=== PATIENT | male | born 1970 | race Caucasian/White ===

== ENCOUNTER 2020-04-23 08:49 | Outpatient (AMBR) | payer MEDICARE, MEDICAID, SELFPAY ==
--- NOTE | 2020-03-31 13:16 | PTNOTE_ITS ---
PT OP Initial Eval Patient Information Visit Reasons: post op right shoulder Medical Diagnosis: S46.091D Treatment Dx #1: Right Shoulder Mobility Deficits Treatment Dx #2: Right Shoulder Weakness Start of Care: 03/31/20 Date of Onset: 01/30/20 Initial Assessment Subjective Pt is a 49 y/o male s/p right shoulder labral repair and bicep tenodesis 01/30/20. Pt still has shoulder pain (5/10) with certain activities. Pt has limitation with overhead motions, auto mechanic supervisor work, self care, chores, lifting, gripping activities, and recreational activities. Objective Right Shoulder AROM Flexion: 150 deg Abduction: 155 deg External Rotation: 90 deg Internal Rotation: 50 deg Right Shoulder MMTs: grossly 3-/5 Right Scapula MMTs: grossly 3-/5 HBB: Thumb at L4 Assessment Pt demonstrate right shoulder mobility and strength deficits s/p shoulder surgery leading to decline function. 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
--- NOTE | 2020-04-09 12:57 | PT.ODAYNRPT ---
PT Outpatient Daily Note Date of Service: 04/09/20 OP Daily Note Visit Reasons: post op right shoulder Outpatient Physical Therapy Treatment Date: 04/09/20 Subjective: Pt's shoulder feels good. Pt notice it still pops and lock at times. Objective: Please see flow chart for list of ther ex performed Assessment: tolerate exercises with minimal pain Plan: Continue with PT Length of Time (minutes) of Treatment: 30 Minutes Office Procedures PT Procedures PT Date of Service: 03/31/20 OP PT Eval Mod Complex 30 minutes: Yes PT Procedures PT Date of Service: 04/09/20 Therapeutic Exercise 30 minutes: Yes
--- NOTE | 2020-04-14 10:48 | PT.ODAYNRPT ---
PT Outpatient Daily Note Date of Service: 04/14/20 OP Daily Note Visit Reasons: post op right shoulder Outpatient Physical Therapy Treatment Date: 04/14/20 Subjective: Pt's shoulder is a little sore today. Pt notice increase soreness after last treatment session. Pt is taking it easy at home. Objective: Please see flow chart for list of ther ex performed Assessment: tolerate exercises with minimal pain; added body blade and performed well Plan: Continue with PT Length of Time (minutes) of Treatment: 30 Minutes Office Procedures PT Procedures PT Date of Service: 03/31/20 OP PT Eval Mod Complex 30 minutes: Yes PT Procedures PT Date of Service: 04/09/20 Therapeutic Exercise 30 minutes: Yes PT Procedures PT Date of Service: 04/14/20 Therapeutic Exercise 30 minutes: Yes
--- NOTE | 2020-04-16 12:46 | PT.ODAYNRPT ---
PT Outpatient Daily Note Date of Service: 04/16/20 OP Daily Note Visit Reasons: post op right shoulder Outpatient Physical Therapy Treatment Date: 04/16/20 Subjective: Pt's shoulder feels good but sore. Pt notice his ROM is improving and getting easier to reach overhead Objective: Please see flow chart for list of ther ex performed Assessment: tolerate exercises with minimal pain; still exhibit slight ant shoulder pain towards end range of flexion and abduction ROM Plan: Continue with PT Length of Time (minutes) of Treatment: 30 Minutes Office Procedures PT Procedures PT Date of Service: 03/31/20 OP PT Eval Mod Complex 30 minutes: Yes PT Procedures PT Date of Service: 04/09/20 Therapeutic Exercise 30 minutes: Yes PT Procedures PT Date of Service: 04/14/20 Therapeutic Exercise 30 minutes: Yes PT Procedures PT Date of Service: 04/16/20 Therapeutic Exercise 30 minutes: Yes
--- NOTE | 2020-04-21 11:09 | PT.ODAYNRPT ---
PT Outpatient Daily Note Date of Service: 04/21/20 OP Daily Note Visit Reasons: post op right shoulder Outpatient Physical Therapy Treatment Date: 04/21/20 Subjective: Pt mention that his shoulder is better. Pt stated that it still catches at a certain range of motion but once he clears it the shoulder will move more freely Objective: Please see flow chart for list of ther ex performed Assessment: tolerate exercises with minimal pain Plan: Continue with PT Length of Time (minutes) of Treatment: 30 Minutes Office Procedures PT Procedures PT Date of Service: 03/31/20 OP PT Eval Mod Complex 30 minutes: Yes PT Procedures PT Date of Service: 04/09/20 Therapeutic Exercise 30 minutes: Yes PT Procedures PT Date of Service: 04/14/20 Therapeutic Exercise 30 minutes: Yes PT Procedures PT Date of Service: 04/16/20 Therapeutic Exercise 30 minutes: Yes PT Procedures PT Date of Service: 04/21/20 Therapeutic Exercise 30 minutes: Yes
--- NOTE | 2020-04-23 16:05 | PT.ODAYNRPT ---
PT Outpatient Daily Note Date of Service: 04/23/20 OP Daily Note Visit Reasons: post op right shoulder Outpatient Physical Therapy Treatment Date: 04/23/20 Subjective: Pt's shoulder is getting better. Pt does not have any pain right now. Objective: Please see flow chart for list of ther ex performed Assessment: tolerate exercises with minimal pain Plan: Continue with PT Length of Time (minutes) of Treatment: 30 Minutes Office Procedures PT Procedures PT Date of Service: 03/31/20 OP PT Eval Mod Complex 30 minutes: Yes PT Procedures PT Date of Service: 04/09/20 Therapeutic Exercise 30 minutes: Yes PT Procedures PT Date of Service: 04/14/20 Therapeutic Exercise 30 minutes: Yes PT Procedures PT Date of Service: 04/16/20 Therapeutic Exercise 30 minutes: Yes PT Procedures PT Date of Service: 04/23/20 Therapeutic Exercise 30 minutes: Yes PT Procedures PT Date of Service: 04/21/20 Therapeutic Exercise 30 minutes: Yes
== END 2020-04-26 23:59 | disposition home or self-care (01) ==
PROVIDERS: PCP Nurse Practitioner; Referring Provider Nurse Practitioner; Visit Provider Orthopaedic Surgery
DX: S46.091D Other injury of muscle(s) and tendon(s) of the rotator cuff of right shoulder, subsequent encounter (principal); M25.511 Pain in right shoulder; R53.1 Weakness; X58.XXXD Exposure to other specified factors, subsequent encounter
CPT/HCPCS: 97110; 97162

== ENCOUNTER 2020-04-28 09:28 | Outpatient (AMBR) | payer MEDICARE, MEDICAID, SELFPAY ==
--- NOTE | 2020-04-28 13:58 | PT.ODAYNRPT ---
PT Outpatient Daily Note Date of Service: 04/28/20 OP Daily Note Visit Reasons: right shoulder post op Outpatient Physical Therapy Treatment Date: 04/28/20 Subjective: Pt still can't reach behind his back. Pt has can perform most activities up to shoulder height and beyond it Objective: Please see flow chart for list of ther ex performed Assessment: tolerate exercises with minimal pain Plan: Continue with PT Length of Time (minutes) of Treatment: 30 Minutes Office Procedures PT Procedures PT Date of Service: 04/28/20 Therapeutic Exercise 30 minutes: Yes
--- NOTE | 2020-05-01 10:21 | PTNOTE_ITS ---
PT OP Progress/Discharge Note Date of Service: 05/01/20 Progress Note/DC Note Progress Note/Discharge Note: DC Note Patient Information Visit Reasons: right shoulder post op Medical Diagnosis: S46.091D Treatment Dx #1: Right Shoulder Mobility Deficits Treatment Dx #2: Right Shoulder Weakness Service Continue Service or Discharge: Discharge Discharge Date: 05/01/20 Status Subjective: Pt mention that his shoulder feels much better. Pt still notice a catch in the shoulder with overhead motions. Pt's shoulder pain is 1-2/10 with certain activities. Pt has resume most ADLs, chores, recreational activities, and working on cars. Objective: Right Shoulder AROM Flexion: 170 deg Abduction: 160 deg External Rotation: 90 deg Internal Rotation: 70 deg Right Shoulder PROM: all motions are WNL Right Shoulder MMTs: grossly 4-/5 Right Scapula MMTs: grossly 3+/5 HBB: Thumb at T9 Assessment: Pt demonstrate functional strength and mobility allowing him to resume ADLs, chores, and recreational activities without limitation. Pt has met goals set in therapy and will no longer benefit from physical therapy. Pt was instructed on HEP last session and educated to continue exercises to maintain overall mobility. Pt performed all exercises safely, thank you for your refe rrals. Plan: D/C home with HEP and follow up with [facility] Office Procedures PT Procedures PT Date of Service: 04/28/20 Therapeutic Exercise 30 minutes: Yes PT Procedures PT Date of Service: 05/01/20 Therapeutic Exercise 30 minutes: Yes
== END 2020-05-26 23:59 | disposition home or self-care (01) ==
PROVIDERS: PCP Nurse Practitioner; Referring Provider Nurse Practitioner; Visit Provider Orthopaedic Surgery
DX: S46.091D Other injury of muscle(s) and tendon(s) of the rotator cuff of right shoulder, subsequent encounter (principal); M25.511 Pain in right shoulder; R53.1 Weakness; X58.XXXD Exposure to other specified factors, subsequent encounter; Z98.890 Other specified postprocedural states
CPT/HCPCS: 97110